=== PATIENT | male | born 1965 | race Caucasian/White ===

== ENCOUNTER → 2017-07-17 | Outpatient (CLI) | payer OTHER ==
[~2017-07-17] MED LIST: /PANT40TA OR; CHLO10TA4 OR; ZYPR15TA3 OR
== END ==
LOC: M SMT 11:35
PROVIDERS: ATTEND Nurse Practitioner Women's Health
DX: Z12.5 Encounter for screening for malignant neoplasm of prostate (principal); N50.819 Testicular pain, unspecified